=== PATIENT | male | born 1955 | race Caucasian/White ===

== ENCOUNTER 2019-04-06 10:07 | Emergency (ER) | payer BC ==
[2019-04-06] MEDS ORDERED: DIPH,PERTUS(ACELL)TETVAC-LF 0.5 ML VIAL IM ONE (10:23)
[2019-04-06 10:29] VITALS: BP 149/86; RESP 18
--- NOTE | 2019-04-06 10:43 | XR ---
EXAMINATION TYPE: XR elbow complete RT DATE OF EXAM: 04/06/2019 COMPARISON: NONE HISTORY: Pain FINDINGS: Three views of the elbow demonstrate no pathologic joint effusion. The osseous structures are intact . There is extensive soft tissue edema overlying the region of the olecranon. There is a large olecr anon spur. There is a linear lucency through the spur. IMPRESSION: 1. Large area of soft tissue edema adjacent to the olecranon. Correlate for olecranon bursitis. There is a large olecranon spur with a lucency which could represent a nondisplaced fracture of the hypert rophic spur..
--- NOTE | 2019-04-06 10:51 | ED ---
Fall HPI - General Stated Complaint: RT ELBOW INJURY, SWELLING Time Seen by Provider: 04/06/19 10:16 Source: patient, RN notes reviewed Mode of arrival: ambulatory Limitations: no limitations - History of Present Illness Initial Comments: 63-year-old male presents emergency Department chief complaint of right elbow swelling. Patient states he fell 2 weeks ago. Patient states he wasn't abrasion. Patient states that it was getting better but states over the last few days she's had increase in swelling and slight redness. Patient denies any fevers or chills he has full range of motion no paresthesias. Patient offers no complaints is unsure when his last tetanus was. - Related Data Home Medications Medication Instructions Recorded Confirmed Amantadine HCl [Amantadine] 100 mg PO TID 04/06/19 04/06/19 Atorvastatin [Lipitor] 20 mg PO DAILY 04/06/19 04/06/19 Calcium Carbonate [Calcium] 600 mg PO DAILY 04/06/19 04/06/19 Cholecalciferol (Vitamin D3) 2,000 unit PO DAILY 04/06/19 04/06/19 [Vitamin D3] Febuxostat [Uloric] 80 mg PO DAILY 04/06/19 04/06/19 Magnesium Oxide 400 mg PO DAILY 04/06/19 04/06/19 Waterman-3 Fatty Acids/Fish Oil [Fish 1 cap PO DAILY 04/06/19 04/06/19 Oil 1,000 mg Softgel] Turmeric Root Extract [Turmeric] 500 mg PO DAILY 04/06/19 04/06/19 amLODIPine [Norvasc] 10 mg PO DAILY 04/06/19 04/06/19 Previous Rx's Medication Instructions Recorded Sulfamethox-Tmp 800-160Mg [Bactrim 1 each PO Q12HR #20 tab 04/06/19 Ds] Allergies Allergy/AdvReac Type Severity Reaction Status Date / Time No Known Allergies Allergy Verified 04/06/19 10:31 Review of Systems ROS Statement: Those systems with pertinent positive or pertinent negative responses have been documented in the HPI. ROS Other: All systems not noted in ROS Statement are negative. Past Medical History Past Medical History: Hypertension History of Any Multi-Drug Resistant Organisms: None Reported Past Surgical History: Back Surgery, Orthopedic Surgery Past Psychological History: No Psychological Hx Reported Smoking Status: Never smoker Past Alcohol Use History: Occasional Past Drug Use History: None Reported General Exam Limitations: no limitations General appearance: alert, in no apparent distress Head exam: Present: atraumatic, normocephalic, normal inspection Respiratory exam: Present: normal lung sounds bilaterally. Absent: respiratory distress, wheezes, rales, rhonchi, stridor Cardiovascular Exam: Present: regular rate, normal rhythm, normal heart sounds. Absent: systolic murmur, diastolic murmur, rubs, gallop, clicks Extremities exam: Present: other (Right elbow there is moderate swelling along the posterior aspect, mild erythema mild tenderness with palpation. There is no tenderness above or below full range of motion) Skin exam: Present: warm, dry, intact, normal color. Absent: rash Course Vital Signs 04/06/19 10:27 Temperature 97.0 F L Pulse Rate 67 Respiratory 18 Rate Blood Pressure 149/86 O2 Sat by Pulse 98 Oximetry Medical Decision Making - Medical Decision Making 63-year-old male present emergency from for right elbow swelling. Patient has olecranon bursitis with superficial infection I do not feel that there is a septic joint. Patient may have developing septic bursitis will be placed on Bactrim DS and will have close follow-up return parameters were discussed. Disposition Clinical Impression: Olecranon bursitis of right elbow Disposition: HOME SELF-CARE Condition: Stable Instructions (If sedation given, give patient instructions): Elbow Bursitis (ED) Additional Instructions: Please return to the Emergency Department if symptoms worsen or any other concerns. Prescriptions: Sulfamethox-Tmp 800-160Mg [Bactrim Ds] 1 each PO Q12HR #20 tab Is patient prescribed a controlled substance at d/c from ED?: No Referrals: Win Parisi MD [Primary Care Provider] - 1-2 days Fox Wills MD [STAFF PHYSICIAN] - 1-2 days Time of Disposition: 11:38
[2019-04-06] MEDS ORDERED: ACET/COD 300 MG/30 MG STARTER PACK 6 TAB BTL PO STA (11:58)
[2019-04-06 12:11] VITALS: PULSE 60; TEMP 98.2
== END 2019-04-06 12:11 | disposition home or self-care (01) ==
LOC: EC 10:07
DX: M70.21 Olecranon bursitis, right elbow (principal); I10 Essential (primary) hypertension; Z23 Encounter for immunization; Z79.899 Other long term (current) drug therapy
CPT/HCPCS: 90471; 90715; 99283

== ENCOUNTER → 2020-11-12 | Outpatient (CLI) | payer BC ==
[2020-11-13 07:35] LABS: Gliadin AB IgA, Deaminated NEGATIVE (NEGATIVE); Gliadin AB IgA, Unit 1.6 U/mL; Gliadin AB IgG, Deaminated NEGATIVE (NEGATIVE)
== END | disposition home or self-care (01) ==
LOC: LABWHC1 15:00
PROVIDERS: ATTEND Internal Medicine
DX: A09 Infectious gastroenteritis and colitis, unspecified (principal)
CPT/HCPCS: 36415; 83516; 86316; 87045; 87046; 87324; 87328; 87329

== ENCOUNTER 2020-11-26 07:35 | Day surgery (SDC) | payer BC ==
[2020-11-24 15:36] VITALS: BMI 29.8
[~2020-11-26 07:35] MED LIST: LACTATED RINGERS 1,000 ML IV SCH; LIDOCAINE 1% (10MG/ML) FOR IV START INTRADERMA PRN
[2020-11-26 07:54] VITALS: RESP 16; TEMP 98.5
[2020-11-26] MEDS ORDERED: LIDOCAINE 1% INJ 10MG/ML (20 ML MDV) ONE (08:16)
[2020-11-26] MEDS ORDERED: PROPOFOL 10 MG/ML 20 ML VIAL IV ONE (08:16)
--- NOTE | 2020-11-26 08:48 | P.PCN ---
Date of Procedure: 11/26/20 Description of Procedure: BRIEF HISTORY: Patient is a 65-year-old male presenting for outpatient colonoscopy for screening for malignant neoplasm of the colon. His been prostate 10 years since patient's last colonoscopy. The patient has been suffering from diarrhea and presented to the GI office for further evaluation. He denies any abdominal pain or blood per rectum. PROCEDURE PERFORMED: Colonoscopy with biopsy and polypectomy. PREOPERATIVE DIAGNOSIS: Screening for malignant neoplasm of the colon, patient reports last colonoscopy approximately 10 years ago, patient has also had diarrhea and change in bowel habits. ESTIMATED BLOOD LOSS: Minimal. IV sedation per Anesthesia. PROCEDURE: After informed consent was obtained, the patient, was brought into the endoscopy unit. IV sedation was administered by Anesthesia under continuous monitoring. Digital rectal examination was normal. Initially the Olympus CF-190 flexible video colonoscope was then inserted in the rectum, gradually advanced into the cecum without any difficulty. Careful examination was performed as the scope was gradually being withdrawn. Ileocecal valve and the appendiceal orifice were visualized and appeared normal. Prep was excellent. Mucosa of the cecum, ascending colon, transverse colon, descending colon, sigmoid colon, and rectum appeared normal, with random biopsies taken of the right left colon. Terminal ileum also appeared normal. A diminutive rectal polyp measuring 1 mm in size was removed with cold forcep polypectomy. Multiple sigmoid diverticula noted. Retroflexion was performed in the rectum and no lesions were see, low-grade internal hemorrhoids n. The patient tolerated the procedure well. IMPRESSION: Diminutive rectal polyp removed with cold forceps. Moderate sigmoid diverticulosis. Normal-appearing colon from rectum to cecum and terminal ileum, with random biopsies taken of the right and left colon in the setting of diarrhea. Internal hemorrhoids. RECOMMENDATIONS: Findings of this examination were discussed with the patient and his family. Okay to resume diet. Okay to resume medications. Await pathology from biopsies and polypectomy. Recommend repeat colonoscopy in 7 years for screening pending pathology from polypectomy. Follow-up in GI clinic for results of biopsies and further management of altered bowel function/diarrhea.
[2020-11-26 09:24] VITALS: BP 185/89; PULSE 62
== END 2020-11-26 09:47 | disposition home or self-care (01) ==
LOC: ORWHC2ENDO 07:35
PROVIDERS: ATTEND Internal Medicine
DX: K52.831 Collagenous colitis (principal); K62.1 Rectal polyp; K57.30 Diverticulosis of large intestine without perforation or abscess without bleeding; K64.8 Other hemorrhoids; I10 Essential (primary) hypertension; E78.5 Hyperlipidemia, unspecified; Z98.890 Other specified postprocedural states; Z87.891 Personal history of nicotine dependence; Z79.899 Other long term (current) drug therapy
CPT/HCPCS: 88305; 45380; J2001; J2704

== ENCOUNTER → 2021-05-03 | Outpatient (CLI) | payer MEDICARE ==
--- NOTE | 2021-05-03 15:18 | CT ---
EXAMINATION TYPE: CT abdomen pelvis w con DATE OF EXAM: 05/03/2021 COMPARISON: None HISTORY: Elevated carcinoembryonic antigen-CEA, history of renal cancer CT DLP: 1592.9 mGycm Automated exposure control for dose reduction was used. Contrast: None Technique: Axial images 5 mm thick sections. Reconstructed images in the coronal plane. FINDINGS: Limited CT sections are obtained from the lung bases which are clear. CT ABDOMEN: There is a area of enhancement within the liver measuring 3.0 x 1.3 cm. This appears isoi ntense on delayed images and may be a hemangioma. Liver otherwise appears unremarkable. Spleen appear s normal. Pancreas is normal. Adrenal glands are normal. Right kidney is normal without masses cyst o r hydronephrosis. No hydroureter is evident. Vascular calcifications within the aorta. The inferior v hawa cava is normal Within the left nephrectomy. No residual soft tissue is evident. Surgical clips are present. Gallbladder is unremarkable. Loops of bowel distended with oral contrast are normal. CT PELVIS: The appendix is unremarkable. Urinary bladder is normal. Prostate is prominent. There may be a few diverticular changes within the sigmoid colon. IMPRESSION: 1. NO RECURRENT OR METASTATIC RENAL CELL CARCINOMA RADIOGRAPHICALLY APPARENT WITHIN THE [id number] . 2. HEMANGIOMA WITHIN THE LIVER. CONSIDER ADDITIONAL CONFIRMATION WITH ULTRASOUND.
== END | disposition home or self-care (01) ==
LOC: RADCTMAIN 11:54
PROVIDERS: ATTEND Internal Medicine
DX: D18.09 Hemangioma of other sites (principal); Z85.528 Personal history of other malignant neoplasm of kidney
CPT/HCPCS: 82565; 84520; 74177; 36415; Q9967

== ENCOUNTER → 2021-07-12 | Outpatient (CLI) | payer MEDICARE ==
--- NOTE | 2021-07-12 08:41 | MR ---
EXAMINATION TYPE: MR liver wo/w con DATE OF EXAM: 07/12/2021 COMPARISON: CT abdomen and pelvis May 03, 2021. HISTORY: liver hemangioma CONTRAST: Standard multiplanar, multisequence MRI departmental protocol images were obtained without contrast a nd with 10 mL intravenous Gadavist gadolinium contrast. Imaging performed of the abdomen focusing on the liver. FINDINGS: Liver: Liver remains normal in size. In the anterior aspect there is redemonstration of oval 2.1 x 1. 3 x 1.6 cm lesion axial image 38 series 701 of T1 hypointensity and T2 hyperintensity, this lesion sh ows homogeneous postcontrast enhancement on dynamic postcontrast images without significant washout o n up to 9 minute delayed images. Findings consistent with a benign flash filling hemangioma. Remainde r of liver shows no worrisome additional solid or cystic intrahepatic mass. Gallbladder remains withi n normal limits. No biliary dilatation noted. Other: Lung bases are grossly clear. Spleen, pancreas, and both adrenal glands appear within normal l imits. Left kidney is not visualized, suspected surgically absent. Right kidney shows no concerning m ass or hydronephrosis. There are a few diverticula in the left colon. No suspicious small or large chan wel dilatation. Osseous structures are intact. IMPRESSION: Stable 2.1 cm oval lesion in the liver with rapid filling and no washout consistent with benign etiology, suspect flash filling hemangioma.
== END | disposition home or self-care (01) ==
LOC: RADMRIMAIN 07:35
PROVIDERS: ATTEND Internal Medicine
DX: K76.9 Liver disease, unspecified (principal)
CPT/HCPCS: 74183; A9585